=== PATIENT | female | born 1945 | race Caucasian/White ===

== ENCOUNTER 2020-09-22 13:18 | Outpatient (CLI) | payer MEDICARE, SELFPAY ==
--- NOTE | ~2020-09-22 | CT_ITS ---
EXAMINATION: CT abdomen pelvis wo/w con DATE: 09/22/2020 13:55 INDICATION: Renal mass TECHNIQUE: Computed tomography (CT) of the abdomen and pelvis was performed without and with 100 mL O mnipaque-350 intravenous contrast. Automated exposure control and iterative reconstruction technique were employed. The dose-length product was 713.69 mGy-cm. COMPARISON: None FINDINGS: Mild to moderate emphysema the visualized mid to lower lungs. Volume loss in the right hemithorax wit h elevation of the right hemidiaphragm. 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 There are groundglass opacities an d small centrilobular nodules in the right lower lung consistent with pneumonia. Small right pleural effusion with loculations. Heart size is normal. Atherosclerotic coronary artery calcifications and a ortic valve calcific lesion. No pericardial effusion. There are a few well-defined fluid attenuation hepatic cysts, the largest in the left hepatic lobe me asuring up to 1.8 cm. Gallbladder, pancreas, right kidney and bilateral adrenal glands are normal. A couple tiny splenic calcific lesions consistent with old granulomatous disease. Irregular enhancing m ass concerning for malignancy centered at the right ureterovesicular junction extending short distanc e caudally along the proximal right ureter as well as proximally into the right renal hilum resulting in secondary moderate right hydronephrosis. There is moderate sigmoid diverticulosis without adjacen t inflammatory change to suggest diverticulitis. Bowels are otherwise normal with no obstruction. Nor mal appendix. Bladder, anteverted uterus and bilateral adnexa are unremarkable. No free intraperitone al gas or fluid. No pathologically enlarged abdominal or pelvic lymphadenopathy. There is calcified a therosclerosis of the aorta and many of the other arteries. Severe lower cervical spondylosis. IMPRESSION: 1. 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 Differential includes transitional cell carcinoma, lymphoma and me tastatic disease. 2. Volume loss the right hemithorax with change of likely right lower lobectomy and paramediastinal r adiation fibrosis. Correlate with clinical history. 3. Groundglass opacities in small centrilobular nodules clustered in the right lower lung zone consis tent with pneumonia. 4. Likely loculated small right pleural effusion. 5. Mild to moderate emphysema. 6. Sigmoid diverticulosis. Reviewed, dictated and finalized at location A. IMPRESSION: 1. Poorly defined infiltrating, enhancing and obstructing likely malignant mass centered at the right ureterovesicular junction extending to the right hilum a nd along the proximal right ureter resulting in moderate right hydronephrosis. Differential includes transitional cell carcinoma, lymphoma and metastatic dise ase. 2. Volume loss the right hemithorax with change of likely right lower lobectomy and paramediastinal radiation fibrosis. Correlate with clinical history. 3. Groundglass opacities in small centrilobular nodules clustered in the right lower lung zone consistent with pneumonia. 4. Likely loculated small right pleural effusion. 5. Mild to moderate emphysema. 6. Sigmoid diverticulosis.
[2020-09-22 13:49] LABS: Estimated Glomerular Filt Rate 40
== END 2020-09-22 13:19 | disposition home or self-care (01) ==
PROVIDERS: PCP Internal Medicine; Visit Provider Urology
DX: N28.89 Other specified disorders of kidney and ureter (principal); N13.30 Unspecified hydronephrosis; R91.8 Other nonspecific abnormal finding of lung field; J90 Pleural effusion, not elsewhere classified; J43.9 Emphysema, unspecified; K57.90 Diverticulosis of intestine, part unspecified, without perforation or abscess without bleeding
CPT/HCPCS: 74178; Q9967

== ENCOUNTER → 2020-10-18 10:49 | Outpatient (CLI) | payer MEDICARE, SELFPAY ==
--- NOTE | ~2020-10-18 | CT_ITS ---
EXAMINATION: CT abdomen pelvis wo/w con DATE: 10/18/2020 11:21 INDICATION: Renal mass TECHNIQUE: Computed tomography (CT) of the abdomen was performed without intravenous contrast. CT of the abdomen and pelvis was then performed with a total of 100 mL Omnipaque 350 intravenous contrast. The dose-length product (DLP) was 883.99 mGy-cm. Automated exposure control and iterative reconstruct ion technique were employed. COMPARISON: 09/22/2020 FINDINGS: Groundglass and nodular opacities are present in the right lower lobe with slight improveme nt. There is mild emphysema. A small loculated right pleural effusion is noted. The heart size is nor mal. Cysts of the liver measure up to 2 cm. The spleen, pancreas, gallbladder, and adrenal glands are normal. There is a 2 mm nonobstructing stone of the otherwise normal left kidney. Again seen is a st able infiltrating soft tissue density mass at the right ureteropelvic junction which causes moderate right hydronephrosis. There is no free intraperitoneal gas or evidence of bowel obstruction. No patho logically enlarged abdominal or pelvic lymph nodes are identified. There is calcified atherosclerosis of the aorta and many of the other arteries. There is severe lumbar spondylosis. Colonic diverticulo sis is present without evidence of diverticulitis. IMPRESSION: 1. Stable infiltrating soft tissue mass at the right ureteropelvic junction causing moderate right hy dronephrosis. Differential includes urothelial carcinoma, lymphoma, metastatic disease, or less likel y infection. Reviewed, dictated and finalized at location A. IMPRESSION: 1. Stable infiltrating soft tissue mass at the right ureteropelvic junction cau sing moderate right hydronephrosis. Differential includes urothelial carcinoma, lymphoma, metastatic disease, or less likely infection.
[2020-10-18 11:07] LABS: Estimated Glomerular Filt Rate 49
== END ==
PROVIDERS: Visit Provider Urology
DX: N28.89 Other specified disorders of kidney and ureter (principal)
CPT/HCPCS: 74178; Q9967